=== PATIENT | male | born 1985 | race African-American/Black ===

== ENCOUNTER → 2017-01-08 | Outpatient (CLI) | payer OTHER ==
[~2017-01-08] MED LIST: ACET-1256 PO; BUSP-8 PO; DIVA500T5 PO; HYDR25TA4 PO; MAGNSUS5 PO; METO50TA16 PO; PERP1TAB PO; TRAZ1TAB9 PO
[2017-01-08 14:30] LABS: HEMATOCRIT 46.5 % (42-52); MEAN CELL VOLUME 79.1 fL (80-100); MEAN CORPUSCULAR HEMOGLOBIN 26.7 pg (25-34); MEAN PLATELET VOLUME 10.4 fL (7.4-10.4); PLATELET COUNT 282 K/uL (130-400); RED BLOOD COUNT 5.88 M/uL (4.7-6.1); WHITE BLOOD COUNT 4.95 K/uL (4.8-10.8)
[2017-01-08 14:42] LABS: BLOOD UREA NITROGEN 15 mg/dl (7-18); BUN/CREATININE RATIO 12.1 (10-20); CALCIUM 9.6 mg/dl (8.5-10.1); CARBON DIOXIDE 27 mmol/L (21-32); CHLORIDE 107 mmol/L (98-107); GLUCOSE 77 mg/dl (70-99); MEAN CORPUSCULAR HGB CONC 33.8 g/dl (32-36); POTASSIUM 4.4 mmol/L (3.5-5.1); SODIUM 141 mmol/L (136-145)
[2017-01-08 15:31] LABS: ALB/GLOB RATIO 1.4 (0.9-2); ALKALINE PHOSPHATASE 63 U/L (45-117); ALT/SGPT 23 U/L (12-78); AST/SGOT 16 U/L (15-37); THYROID STIMULATING HORMONE 0.235 uIu/ml (0.300-4.500)
[2017-01-08 15:39] LABS: BASO % 0.4 %; BASO ABS # 0.02 K/uL (0-0.2); COMPLETE YES; EOS % 1.6 %; LYMPH % 50.3 %; LYMPH ABS # 2.49 K/uL (1.2-3.4); MONO % 4.8 %; NEUT % 42.9 %
== END ==
LOC: C.LABSPEC 14:08
PROVIDERS: ATTEND Family Medicine
DX: Z01.89 Encounter for other specified special examinations (principal)

== ENCOUNTER 2021-12-19 11:52 | Inpatient (IN) ==
--- NOTE | 2021-12-19 12:37 | Emergency Department Note ---
History of Present Illness General Chief complaint: Overdose (Intentional) Stated complaint: SELF HARM SWALLOWING APPROXIMATEELY 50 PILLS Time Seen by Provider: 12/19/21 12:23 Source: patient and police Mode of arrival: other ([facility] transport) History of Present Illness Provider complaint: Overdose Onset (ago): hour(s) Location: abdomen Pain Consistency: + constant Quality: + other (Took approximately 50 tablets of aspirin 325 mg) Relieved By: + none Associated symptoms: no chest pain, no cough, no fever/chills, no headaches, no nausea/vomiting or no shortness of breath This is a 36-year-old male with a history of PTSD and depression presenting after intentionally overdosing on aspirin at approximately 10 to 10:30 AM this morning. He states he took approximately a half bottle of aspirin which contained the 100 tablets of 325 mg aspirin. He complains of a little stomach discomfort but otherwise has no complaints. He was attempting to kill himself and currently states that he just feels tired. He denies any nausea or vomiting, headache, fever, cough or cold symptoms, chest pain, shortness of breath, ringing in his ears, diarrhea or urinary symptoms. He denies any other overdose Home Medications Medication Instructions Recorded Confirmed Type prazosin 2 mg capsule 2 mg PO HS 12/19/21 12/19/21 History Allergies Allergy/AdvReac Type Severity Reaction Status Date / Time Fish Allergy Unknown UNKN Uncoded 12/19/21 15:49 Past Med/Surg History Medical History (Updated 12/19/21 @ 18:09 by Sheldon Jones MD) Antisocial personality disorder Depression PTSD (post-traumatic stress disorder) Surgical History (Updated 12/19/21 @ 16:35 by Jessie Nair PA-C) History of appendectomy History of hand surgery R hand reconstruction Family History (Updated 12/19/21 @ 16:36 by Jessie Nair PA-C) Other Diabetes Hypertension Social History Smoking Status: Current every day smoker Current Living Situation: Other Current Living Situation Comment: [facility] Feels Safe at Home: Yes Review of Systems See HPI for pertinent positives & negatives. and A total of 10 systems reviewed and were otherwise negative Physical Exam Vital Signs Vital Signs - 24 hr 12/19/21 12:06 12/19/21 12:23 12/19/21 12:54 Temperature 36.4 C L Temperature Source Temporal Artery Scan Pulse Rate 86 67 Pulse Rate [Apical] 67 Pulse Rhythm Regular Pulse Rhythm [Apical] Regular Pulse Strength [Apical] Normal Respiratory Rate 18 18 Respiratory Effort / Characteristics Non-Labored Spontaneous Non-Labored Respiratory Depth Normal Normal Respiratory Pattern Regular Regular Blood Pressure 161/103 H Blood Pressure [Left Arm] 133/92 Blood Pressure Mean 122 Blood Pressure Mean [Left Arm] 105 Blood Pressure Position Sitting Blood Pressure Position [Left Arm] Lying Pulse Oximetry 99 98 Oxygen Delivery Method Room Air Room Air Oxygen Flow Rate 0 Sepsis Recent Fever Within 48 Hours No Sepsis New/Unexplained Change in Mental Status No Sepsis Action Taken by Nursing No Action Required 12/19/21 14:01 12/19/21 14:47 12/19/21 16:12 Temperature Temperature Source Pulse Rate Pulse Rate [Apical] 65 74 79 Pulse Rhythm Pulse Rhythm [Apical] Regular Regular Regular Pulse Strength [Apical] Normal Normal Normal Respiratory Rate 18 18 18 Respiratory Effort / Characteristics Non-Labored Non-Labored Non-Labored Respiratory Depth Normal Normal Normal Respiratory Pattern Regular Regular Regular Blood Pressure Blood Pressure [Left Arm] 138/74 132/72 131/77 Blood Pressure Mean Blood Pressure Mean [Left Arm] 95 92 95 Blood Pressure Position Blood Pressure Position [Left Arm] Lying Lying Lying Pulse Oximetry 98 97 97 Oxygen Delivery Method Room Air Room Air Room Air Oxygen Flow Rate Sepsis Recent Fever Within 48 Hours Sepsis New/Unexplained Change in Mental Status Sepsis Action Taken by Nursing Constitutional: Vital signs reviewed. Eyes: Pupils are equal round reactive to light. Conjunctiva are noninjected. ENT: Pharynx is clear without erythema or exudate. Mucous membranes are moist. Neck supple without meningeal signs. Respiratory: Clear to auscultation bilaterally. Breath sounds are equal bilaterally. Cardiovascular: Regular rate and rhythm. No rubs or gallops. GI: Soft, nondistended and nontender. Bowel sounds are present. Musculoskeletal: No peripheral edema. No lower extremity tenderness. Integumentary: No cyanosis. or jaundice. Neurological: The patient is awake and alert. No focal deficits. Psychiatric: Depressed affect. Not tearful. Course Consultations Consultation #1: [facility] recommended activated charcoal Time: 12:46 Administered Medications Sodium Bicarbonate 150 meq/ (Dextrose) 1,150 mls @ 250 mls/hr IV [id number] Stop: 01/18/22 15:29 Last Admin: 12/19/21 15:48 Dose: 250 mls/hr Documented by: [id number] Discontinued Medications Charcoal/Sorbitol (Activated Charcoal/Sorbitol 25 Gm/120 Ml Tube) 50 gm PO NOW STA Stop: 12/19/21 12:42 Last Admin: 12/19/21 12:52 Dose: 50 gm Documented by: [id number] Famotidine (Pepcid 20mg Iv Push) 20 mg in 5 mls @ 2.5 mls/min IV NOW STA Stop: 12/19/21 16:22 Last Admin: 12/19/21 16:48 Dose: 2.5 mls/min Documented by: [id number] Ondansetron HCl (Ondansetron Inj 2 Mg/Ml 2 Ml Vial) 4 mg IV NOW STA Stop: 12/19/21 16:22 Last Admin: 12/19/21 16:48 Dose: 4 mg Documented by: [id number] Sodium Bicarbonate (Sodium Bicarb 8.4% Inj 50 Meq/50 Ml Syr) 100 meq IV NOW STA Stop: 12/19/21 15:15 Last Admin: 12/19/21 15:23 Dose: 100 meq Documented by: [id number] Critical Care Time Critical Care Time: Yes Total Critical Care Time: 45 I have personally spent approximately 45 minutes of critical care time in the direct management of this patient. This includes bedside care, interpretation of diagnostic studies, and testing, discussion with consultants, patient, and family members, and other required patient management activities. These minutes are in excess of all separately billable procedures. Medical Decision Making Differential Diagnosis Salicylate overdose, suicide attempt, mood disorder, PTSD, suicidal gesture Medical Records Attestation: I reviewed the patient's medical records. I did perform a limited focused review of portions of the patient's old chart on the electronic medical record. The patient has had no recent pertinent visits to this hospital. Home Medications Current Medication List: was personally reviewed by me Laboratory Data Attestation: I reviewed the patient's lab results. Result diagrams: 12/19/21 12:24 12/19/21 16:42 Lab Results 12/19/21 12/19/21 12/19/21 Range/Units 12:24 12:24 12:24 WBC 4.03 L (4.8-10.8) K/uL RBC 5.55 (4.7-6.1) M/uL Hgb 14.9 (14.0-18.0) g/dL Hct 43.9 (42-52) % MCV 79.1 L (80-100) fL MCH 26.8 (25-34) pg MCHC 33.9 (32-36) g/dL RDW Std Deviation 39.4 (36.4-46.3) fL RDW Coeff of Marco A 13.7 (11.5-14.5) % Plt Count 323 (130-400) K/uL MPV 9.3 (7.4-10.4) fL Immature Gran % (Auto) 0.0 % Neut % (Auto) 51.0 % Lymph % (Auto) 40.4 % [place] % (Auto) 7.9 % Eos % (Auto) 0.5 % Baso % (Auto) 0.2 % Neut # (Auto) 2.05 (1.4-6.5) K/uL Lymph # (Auto) 1.63 (1.2-3.4) K/uL [place] # (Auto) 0.32 (0.11-0.59) K/uL Eos # (Auto) 0.02 (0-0.5) K/uL Baso # (Auto) 0.01 (0-0.2) K/uL Immature Gran # (Auto) 0.00 (0.00-0.02) K/uL ABG pH (7.35-7.45) ABG pCO2 (35-46) mmHg ABG pO2 (80-95) mmHg ABG HCO3 (19-24) mmol/L ABG O2 Saturation (90-95) % ABG Base Excess (-9-1.8) mEq/L Colin Test (Pos) VBG pH (7.36-7.41) VBG pCO2 (38-50) mmHg VBG pO2 mmHg VBG HCO3 mmol/L VBG O2 Saturation % VBG Base Excess mEq/L Barometric Pressure mm/Hg Oxygen Given Sodium 139 (136-145) mmol/L Potassium 4.1 (3.5-5.1) mmol/L Chloride 107 (98-107) mmol/L Carbon Dioxide 24 (21-32) mmol/L Anion Gap 8 (3-11) BUN 12 (6-23) mg/dl Creatinine 1.24 (0.6-1.4) mg/dl Est Cr Clr Drug Dosing 92.2 ml/min Est GFR ( Amer) 85.5 ml/min Est GFR (Non-Af Amer) 73.8 ml/min BUN/Creatinine Ratio 9.7 L (10-20) Glucose 94 (70-99(Fasting)) mg/dl POC Glucose (70-99) mg/dl Lactate (0.4-2.0) mmol/L Calcium 9.6 (8.5-10.1) mg/dl Magnesium Total Bilirubin 0.6 (0.2-1.0) mg/dl AST 18 (13-39) U/L ALT 14 (7-52) U/L Alkaline Phosphatase 63 (34-104) U/L Total Creatine Kinase (30-223) U/L Troponin I (0-0.04) ng/ml Total Protein 7.5 (6.0-8.3) gm/dl Albumin 4.7 (3.4-5.0) gm/dl Globulin 2.8 (2.5-4.0) gm/dl Albumin/Globulin Ratio 1.7 (0.9-2) Urine Color Urine Appearance (Clear) Urine pH (4.5-7.5) Ur Specific [place] (1.000-1.030) Urine Protein (Negative) Urine Glucose (UA) (Negative) Urine Ketones (Negative) Urine Blood (Negative) Urine Nitrite (Negative) Urine Bilirubin (Negative) Urine Urobilinogen (Negative) Ur Leukocyte Esterase (Negative) Salicylates 27.2 (3.0-30) mg/dl Urine Opiates Screen (Neg) Ur Methadone, Qual (Neg) Acetaminophen < 3 L (10-30) ug/ml Urine Barbiturates (Neg) Ur Phencyclidine (PCP) (Neg) U Amphetamin/Meth Scrn (Neg) MDMA (Ecstasy) Screen (Neg) U Benzodiazepines Scrn (Neg) Ur Cocaine Metabolite (Neg) U Marijuana (THC) Screen (Neg) Ethyl Alcohol mg/dL (<10.0) mg/dl 12/19/21 12/19/21 12/19/21 Range/Units 12:24 12:38 12:38 WBC (4.8-10.8) K/uL RBC (4.7-6.1) M/uL Hgb (14.0-18.0) g/dL Hct (42-52) % MCV (80-100) fL MCH (25-34) pg MCHC (32-36) g/dL RDW Std Deviation (36.4-46.3) fL RDW Coeff of Marco A (11.5-14.5) % Plt Count (130-400) K/uL MPV (7.4-10.4) fL Immature Gran % (Auto) % Neut % (Auto) % Lymph % (Auto) % [place] % (Auto) % Eos % (Auto) % Baso % (Auto) % Neut # (Auto) (1.4-6.5) K/uL Lymph # (Auto) (1.2-3.4) K/uL [place] # (Auto) (0.11-0.59) K/uL Eos # (Auto) (0-0.5) K/uL Baso # (Auto) (0-0.2) K/uL Immature Gran # (Auto) (0.00-0.02) K/uL ABG pH (7.35-7.45) ABG pCO2 (35-46) mmHg ABG pO2 (80-95) mmHg ABG HCO3 (19-24) mmol/L ABG O2 Saturation (90-95) % ABG Base Excess (-9-1.8) mEq/L Colin Test (Pos) VBG pH 7.42 H (7.36-7.41) VBG pCO2 38 (38-50) mmHg VBG pO2 63 mmHg VBG HCO3 24 mmol/L VBG O2 Saturation 93.6 % VBG Base Excess 0.2 mEq/L Barometric Pressure 735.6 mm/Hg Oxygen Given Sodium (136-145) mmol/L Potassium (3.5-5.1) mmol/L Chloride (98-107) mmol/L Carbon Dioxide (21-32) mmol/L Anion Gap (3-11) BUN (6-23) mg/dl Creatinine (0.6-1.4) mg/dl Est Cr Clr Drug Dosing ml/min Est GFR ( Amer) ml/min Est GFR (Non-Af Amer) ml/min BUN/Creatinine Ratio (10-20) Glucose (70-99(Fasting)) mg/dl POC Glucose (70-99) mg/dl Lactate 0.8 (0.4-2.0) mmol/L Calcium (8.5-10.1) mg/dl Magnesium Total Bilirubin (0.2-1.0) mg/dl AST (13-39) U/L ALT (7-52) U/L Alkaline Phosphatase (34-104) U/L Total Creatine Kinase (30-223) U/L Troponin I (0-0.04) ng/ml Total Protein (6.0-8.3) gm/dl Albumin (3.4-5.0) gm/dl Globulin (2.5-4.0) gm/dl Albumin/Globulin Ratio (0.9-2) Urine Color Urine Appearance (Clear) Urine pH (4.5-7.5) Ur Specific [place] (1.000-1.030) Urine Protein (Negative) Urine Glucose (UA) (Negative) Urine Ketones (Negative) Urine Blood (Negative) Urine Nitrite (Negative) Urine Bilirubin (Negative) Urine Urobilinogen (Negative) Ur Leukocyte Esterase (Negative) Salicylates (3.0-30) mg/dl Urine Opiates Screen (Neg) Ur Methadone, Qual (Neg) Acetaminophen (10-30) ug/ml Urine Barbiturates (Neg) Ur Phencyclidine (PCP) (Neg) U Amphetamin/Meth Scrn (Neg) MDMA (Ecstasy) Screen (Neg) U Benzodiazepines Scrn (Neg) Ur Cocaine Metabolite (Neg) U Marijuana (THC) Screen (Neg) Ethyl Alcohol mg/dL < 10.0 (<10.0) mg/dl 12/19/21 12/19/21 12/19/21 Range/Units 12:38 13:15 13:15 WBC (4.8-10.8) K/uL RBC (4.7-6.1) M/uL Hgb (14.0-18.0) g/dL Hct (42-52) % MCV (80-100) fL MCH (25-34) pg MCHC (32-36) g/dL RDW Std Deviation (36.4-46.3) fL RDW Coeff of Marco A (11.5-14.5) % Plt Count (130-400) K/uL MPV (7.4-10.4) fL Immature Gran % (Auto) % Neut % (Auto) % Lymph % (Auto) % [place] % (Auto) % Eos % (Auto) % Baso % (Auto) % Neut # (Auto) (1.4-6.5) K/uL Lymph # (Auto) (1.2-3.4) K/uL [place] # (Auto) (0.11-0.59) K/uL Eos # (Auto) (0-0.5) K/uL Baso # (Auto) (0-0.2) K/uL Immature Gran # (Auto) (0.00-0.02) K/uL ABG pH (7.35-7.45) ABG pCO2 (35-46) mmHg ABG pO2 (80-95) mmHg ABG HCO3 (19-24) mmol/L ABG O2 Saturation (90-95) % ABG Base Excess (-9-1.8) mEq/L Colin Test (Pos) VBG pH (7.36-7.41) VBG pCO2 (38-50) mmHg VBG pO2 mmHg VBG HCO3 mmol/L VBG O2 Saturation % VBG Base Excess mEq/L Barometric Pressure mm/Hg Oxygen Given Sodium (136-145) mmol/L Potassium (3.5-5.1) mmol/L Chloride (98-107) mmol/L Carbon Dioxide (21-32) mmol/L Anion Gap (3-11) BUN (6-23) mg/dl Creatinine (0.6-1.4) mg/dl Est Cr Clr Drug Dosing ml/min Est GFR ( Amer) ml/min Est GFR (Non-Af Amer) ml/min BUN/Creatinine Ratio (10-20) Glucose (70-99(Fasting)) mg/dl POC Glucose (70-99) mg/dl Lactate (0.4-2.0) mmol/L Calcium (8.5-10.1) mg/dl Magnesium Total Bilirubin (0.2-1.0) mg/dl AST (13-39) U/L ALT (7-52) U/L Alkaline Phosphatase (34-104) U/L Total Creatine Kinase 352 H (30-223) U/L Troponin I (0-0.04) ng/ml Total Protein (6.0-8.3) gm/dl Albumin (3.4-5.0) gm/dl Globulin (2.5-4.0) gm/dl Albumin/Globulin Ratio (0.9-2) Urine Color Yellow Urine Appearance Clear (Clear) Urine pH 6.5 (4.5-7.5) Ur Specific [place]lette 1.012 (1.000-1.030) Urine Protein Negative (Negative) Urine Glucose (UA) Negative (Negative) Urine Ketones Negative (Negative) Urine Blood Negative (Negative) Urine Nitrite Negative (Negative) Urine Bilirubin Negative (Negative) Urine Urobilinogen Negative (Negative) Ur Leukocyte Esterase Negative (Negative) Salicylates (3.0-30) mg/dl Urine Opiates Screen Neg (Neg) Ur Methadone, Qual Neg (Neg) Acetaminophen (10-30) ug/ml Urine Barbiturates Neg (Neg) Ur Phencyclidine (PCP) Neg (Neg) U Amphetamin/Meth Scrn Neg (Neg) MDMA (Ecstasy) Screen Neg (Neg) U Benzodiazepines Scrn Neg (Neg) Ur Cocaine Metabolite Neg (Neg) U Marijuana (THC) Screen Neg (Neg) Ethyl Alcohol mg/dL (<10.0) mg/dl 12/19/21 12/19/21 12/19/21 Range/Units 14:20 14:20 14:20 WBC (4.8-10.8) K/uL RBC (4.7-6.1) M/uL Hgb (14.0-18.0) g/dL Hct (42-52) % MCV (80-100) fL MCH (25-34) pg MCHC (32-36) g/dL RDW Std Deviation (36.4-46.3) fL RDW Coeff of Marco A (11.5-14.5) % Plt Count (130-400) K/uL MPV (7.4-10.4) fL Immature Gran % (Auto) % Neut % (Auto) % Lymph % (Auto) % [place] % (Auto) % Eos % (Auto) % Baso % (Auto) % Neut # (Auto) (1.4-6.5) K/uL Lymph # (Auto) (1.2-3.4) K/uL [place] # (Auto) (0.11-0.59) K/uL Eos # (Auto) (0-0.5) K/uL Baso # (Auto) (0-0.2) K/uL Immature Gran # (Auto) (0.00-0.02) K/uL ABG pH (7.35-7.45) ABG pCO2 (35-46) mmHg ABG pO2 (80-95) mmHg ABG HCO3 (19-24) mmol/L ABG O2 Saturation (90-95) % ABG Base Excess (-9-1.8) mEq/L Colin Test (Pos) VBG pH (7.36-7.41) VBG pCO2 (38-50) mmHg VBG pO2 mmHg VBG HCO3 mmol/L VBG O2 Saturation % VBG Base Excess mEq/L Barometric Pressure mm/Hg Oxygen Given Sodium (136-145) mmol/L Potassium 5.0 D (3.5-5.1) mmol/L Chloride (98-107) mmol/L Carbon Dioxide (21-32) mmol/L Anion Gap (3-11) BUN (6-23) mg/dl Creatinine (0.6-1.4) mg/dl Est Cr Clr Drug Dosing ml/min Est GFR ( Amer) ml/min Est GFR (Non-Af Amer) ml/min BUN/Creatinine Ratio (10-20) Glucose (70-99(Fasting)) mg/dl POC Glucose (70-99) mg/dl Lactate (0.4-2.0) mmol/L Calcium (8.5-10.1) mg/dl Magnesium Cancelled 2.3 Total Bilirubin (0.2-1.0) mg/dl AST (13-39) U/L ALT (7-52) U/L Alkaline Phosphatase (34-104) U/L Total Creatine Kinase (30-223) U/L Troponin I (0-0.04) ng/ml Total Protein (6.0-8.3) gm/dl Albumin (3.4-5.0) gm/dl Globulin (2.5-4.0) gm/dl Albumin/Globulin Ratio (0.9-2) Urine Color Urine Appearance (Clear) Urine pH (4.5-7.5) Ur Specific [place]lette (1.000-1.030) Urine Protein (Negative) Urine Glucose (UA) (Negative) Urine Ketones (Negative) Urine Blood (Negative) Urine Nitrite (Negative) Urine Bilirubin (Negative) Urine Urobilinogen (Negative) Ur Leukocyte Esterase (Negative) Salicylates 37.0 H* (3.0-30) mg/dl Urine Opiates Screen (Neg) Ur Methadone, Qual (Neg) Acetaminophen (10-30) ug/ml Urine Barbiturates (Neg) Ur Phencyclidine (PCP) (Neg) U Amphetamin/Meth Scrn (Neg) MDMA (Ecstasy) Screen (Neg) U Benzodiazepines Scrn (Neg) Ur Cocaine Metabolite (Neg) U Marijuana (THC) Screen (Neg) Ethyl Alcohol mg/dL (<10.0) mg/dl 12/19/21 12/19/21 12/19/21 Range/Units 15:23 16:42 16:42 WBC (4.8-10.8) K/uL RBC (4.7-6.1) M/uL Hgb (14.0-18.0) g/dL Hct (42-52) % MCV (80-100) fL MCH (25-34) pg MCHC (32-36) g/dL RDW Std Deviation (36.4-46.3) fL RDW Coeff of Marco A (11.5-14.5) % Plt Count (130-400) K/uL MPV (7.4-10.4) fL Immature Gran % (Auto) % Neut % (Auto) % Lymph % (Auto) % [place] % (Auto) % Eos % (Auto) % Baso % (Auto) % Neut # (Auto) (1.4-6.5) K/uL Lymph # (Auto) (1.2-3.4) K/uL [place] # (Auto) (0.11-0.59) K/uL Eos # (Auto) (0-0.5) K/uL Baso # (Auto) (0-0.2) K/uL Immature Gran # (Auto) (0.00-0.02) K/uL ABG pH 7.52 H* (7.35-7.45) ABG pCO2 31 L (35-46) mmHg ABG pO2 102 H (80-95) mmHg ABG HCO3 25 H (19-24) mmol/L ABG O2 Saturation 98.1 H (90-95) % ABG Base Excess 3.0 H (-9-1.8) mEq/L Colin Test Pos (Pos) VBG pH (7.36-7.41) VBG pCO2 (38-50) mmHg VBG pO2 mmHg VBG HCO3 mmol/L VBG O2 Saturation % VBG Base Excess mEq/L Barometric Pressure 733.5 mm/Hg Oxygen Given Room Air Sodium (136-145) mmol/L Potassium 3.8 D (3.5-5.1) mmol/L Chloride (98-107) mmol/L Carbon Dioxide (21-32) mmol/L Anion Gap (3-11) BUN (6-23) mg/dl Creatinine (0.6-1.4) mg/dl Est Cr Clr Drug Dosing ml/min Est GFR ( Amer) ml/min Est GFR (Non-Af Amer) ml/min BUN/Creatinine Ratio (10-20) Glucose (70-99(Fasting)) mg/dl POC Glucose 95 (70-99) mg/dl Lactate (0.4-2.0) mmol/L Calcium (8.5-10.1) mg/dl Magnesium 2.2 Total Bilirubin (0.2-1.0) mg/dl AST (13-39) U/L ALT (7-52) U/L Alkaline Phosphatase (34-104) U/L Total Creatine Kinase (30-223) U/L Troponin I < 0.03 (0-0.04) ng/ml Total Protein (6.0-8.3) gm/dl Albumin (3.4-5.0) gm/dl Globulin (2.5-4.0) gm/dl Albumin/Globulin Ratio (0.9-2) Urine Color Urine Appearance (Clear) Urine pH (4.5-7.5) Ur Specific [place] (1.000-1.030) Urine Protein (Negative) Urine Glucose (UA) (Negative) Urine Ketones (Negative) Urine Blood (Negative) Urine Nitrite (Negative) Urine Bilirubin (Negative) Urine Urobilinogen (Negative) Ur Leukocyte Esterase (Negative) Salicylates (3.0-30) mg/dl Urine Opiates Screen (Neg) Ur Methadone, Qual (Neg) Acetaminophen (10-30) ug/ml Urine Barbiturates (Neg) Ur Phencyclidine (PCP) (Neg) U Amphetamin/Meth Scrn (Neg) MDMA (Ecstasy) Screen (Neg) U Benzodiazepines Scrn (Neg) Ur Cocaine Metabolite (Neg) U Marijuana (THC) Screen (Neg) Ethyl Alcohol mg/dL (<10.0) mg/dl 12/19/21 Range/Units 17:31 WBC (4.8-10.8) K/uL RBC (4.7-6.1) M/uL Hgb (14.0-18.0) g/dL Hct (42-52) % MCV (80-100) fL MCH (25-34) pg MCHC (32-36) g/dL RDW Std Deviation (36.4-46.3) fL RDW Coeff of Marco A (11.5-14.5) % Plt Count (130-400) K/uL MPV (7.4-10.4) fL Immature Gran % (Auto) % Neut % (Auto) % Lymph % (Auto) % [place] % (Auto) % Eos % (Auto) % Baso % (Auto) % Neut # (Auto) (1.4-6.5) K/uL Lymph # (Auto) (1.2-3.4) K/uL [place] # (Auto) (0.11-0.59) K/uL Eos # (Auto) (0-0.5) K/uL Baso # (Auto) (0-0.2) K/uL Immature Gran # (Auto) (0.00-0.02) K/uL ABG pH (7.35-7.45) ABG pCO2 (35-46) mmHg ABG pO2 (80-95) mmHg ABG HCO3 (19-24) mmol/L ABG O2 Saturation (90-95) % ABG Base Excess (-9-1.8) mEq/L Colin Test (Pos) VBG pH (7.36-7.41) VBG pCO2 (38-50) mmHg VBG pO2 mmHg VBG HCO3 mmol/L VBG O2 Saturation % VBG Base Excess mEq/L Barometric Pressure mm/Hg Oxygen Given Sodium (136-145) mmol/L Potassium (3.5-5.1) mmol/L Chloride (98-107) mmol/L Carbon Dioxide (21-32) mmol/L Anion Gap (3-11) BUN (6-23) mg/dl Creatinine (0.6-1.4) mg/dl Est Cr Clr Drug Dosing ml/min Est GFR ( Amer) ml/min Est GFR (Non-Af Amer) ml/min BUN/Creatinine Ratio (10-20) Glucose (70-99(Fasting)) mg/dl POC Glucose 98 (70-99) mg/dl Lactate (0.4-2.0) mmol/L Calcium (8.5-10.1) mg/dl Magnesium Total Bilirubin (0.2-1.0) mg/dl AST (13-39) U/L ALT (7-52) U/L Alkaline Phosphatase (34-104) U/L Total Creatine Kinase (30-223) U/L Troponin I (0-0.04) ng/ml Total Protein (6.0-8.3) gm/dl Albumin (3.4-5.0) gm/dl Globulin (2.5-4.0) gm/dl Albumin/Globulin Ratio (0.9-2) Urine Color Urine Appearance (Clear) Urine pH (4.5-7.5) Ur Specific Roulette (1.000-1.030) Urine Protein (Negative) Urine Glucose (UA) (Negative) Urine Ketones (Negative) Urine Blood (Negative) Urine Nitrite (Negative) Urine Bilirubin (Negative) Urine Urobilinogen (Negative) Ur Leukocyte Esterase (Negative) Salicylates (3.0-30) mg/dl Urine Opiates Screen (Neg) Ur Methadone, Qual (Neg) Acetaminophen (10-30) ug/ml Urine Barbiturates (Neg) Ur Phencyclidine (PCP) (Neg) U Amphetamin/Meth Scrn (Neg) MDMA (Ecstasy) Screen (Neg) U Benzodiazepines Scrn (Neg) Ur Cocaine Metabolite (Neg) U Marijuana (THC) Screen (Neg) Ethyl Alcohol mg/dL (<10.0) mg/dl Imaging Data Radiologist's Impression: KUB X-Ray 12/19/21 12:41 KUB HISTORY: eval for pill bezoar COMPARISON: None. FINDINGS: The bowel gas pattern is unremarkable. There are no dilated loops of small bowel to suggest an obstruction. No renal calculi. No ureteral calculi. Calcifications in the deep pelvis likely represent phleboliths. No radiopaque foreign bodies. Small amount of well-formed stool seen throughout the colon. No pneumoperitoneum or pneumatosis. IMPRESSION: 1. No evidence for bowel obstruction. 2. No radiopaque foreign bodies. ACT 112: Negative or not required by law. Electronically signed by: Dustin Mackenzie M.D. 12/19/2021 1:39 PM ECG Data Attestation: I personally reviewed and interpreted this ECG as follows: Indication: + toxicologic Rate (beats per minute): 70 Rhythm: + normal sinus ECG Intervals/blocks: + Normal QRS and + Normal QT ECG [place]: + Normal ECG ST segments: + repolarization abnormalities ECG Findings: no PVCs Comparison ECG Date: no prior available MDM Narrative I did evaluate the patient as noted above. The patient is brought in after a suicide attempt with overdose on aspirin. He took approximately 50 tablets of 325 mg aspirin sometime between 10-10 30 a.m. and intent to end his life. He currently has no complaints other than some abdominal discomfort. I did immediately call [facility] poison control. They recommended no acute intervention initially including activated charcoal but then they called back a few minutes later and stated that they would recommend that activated charcoal due to the amount of aspirin that was ingested. I did immediately order activated charcoal 50 g with sorbitol IV access was established. I did place an order for continuous cardiac monitoring. The monitor showed normal sinus rhythm at a rate of 70 bpm. I did order and personally review the patient's 12- lead EKG as described above. There is no evidence of QT prolongation or abnormal QRS. No dysrhythmia. I did order and personally reviewed the images of the patient's KUB x-ray as described above. No radiopaque pills or basilar is noted I did order a urine analysis. This is normal. Urine pH is 6.5. Urine tox screen is negative. I did order and review the patient's blood work as noted in the electronic medical record. CBC demonstrates a mild leukopenia with a white count of 4.0 but otherwise a CBC is unremarkable. VBG shows a pH of 7.42. Electrolytes are unremarkable. Potassium is 4.1. Magnesium is normal. Total CK is slightly elevated at 352.Toxicology screen shows a salicylate level of 27.2. Acetaminophen is less than 3 and alcohol is negative. Poison control did recommend a repeat salicylate level in 2 hours. This was repeated 2 hours after his first draw and it was 37. Poison control recommended treating him with bicarb. I did order a second glucose which was 95. His repeat potassium was 5 and so I did not give him any IV potassium. He was given 2 A of bicarbonate IV. He was started on a drip of D5W with 150 mEq of bicarb running at 250 mL an hour to alkalinize his urine. I did discuss the test results with the patient. He is not confused in any way. He complains of generalized malaise but has no specific complaints. He will be hospitalized for further care and evaluation. I did discuss the case with the hospitalist and telephonic case manager. Impression & Plan Salicylate overdose, Suicide attempt, Mood disorder, Leukopenia Discharge Plan Visit Data Chief Complaint: Overdose (Intentional) Stated Complaint: SELF HARM SWALLOWING APPROXIMATEELY 50 PILLS ED Provider: Sheldon Jones Discharge Problem: Salicylate overdose, Suicide attempt, Mood disorder, Leukopenia Patient Disposition: Being Evaluated by Hospitalist Forms Stand Alone Forms: My [facility], Suicide Prevention Resources Prescriptions Prescriptions: No Action prazosin 2 mg Capsule 2 mg PO HS RF: 0 Referrals Referrals: Margie ROSALES [Non-Staff] -
[2021-12-19] MEDS ORDERED: ACTIVATED CHARCOAL/SORBITOL 25 GM/120 ML TUBE PO STA (12:41)
[2021-12-19 12:45] LABS: Basophils # (auto) 0.01 K/uL (0-0.2); Basophils % (auto) 0.2 %; Eosinophils # (auto) 0.02 K/uL (0-0.5); Eosinophils % (auto) 0.5 %; Hematocrit (blood only) 43.9 % (42-52); Hemoglobin 14.9 g/dL (14.0-18.0); Lymphocytes # (auto) 1.63 K/uL (1.2-3.4); Lymphocytes % (auto) 40.4 %; Mean Corpuscular Hemoglobin 26.8 pg (25-34); Mean Corpuscular Hgb Conc 33.9 g/dL (32-36); Mean Corpuscular Volume 79.1 fL (80-100); Mean Platelet Volume 9.3 fL (7.4-10.4); Monocytes # (auto) 0.32 K/uL (0.11-0.59); Monocytes % (auto) 7.9 %; Neutrophils # (auto) 2.05 K/uL (1.4-6.5); Platelet Count 323 K/uL (130-400); RDW Coefficient of Variation 13.7 % (11.5-14.5); RDW Standard Deviation 39.4 fL (36.4-46.3); Red Blood Count 5.55 M/uL (4.7-6.1); White Blood Count 4.03 K/uL (4.8-10.8)
[2021-12-19 13:03] LABS: Base Excess VBG 0.2 mEq/L; Oxygen Saturation VBG 93.6 %; pH VBG 7.42 (7.36-7.41)
[2021-12-19 13:03] LABS: Acetaminophen < 3 ug/ml (10-30); Albumin Globulin Ratio 1.7 (0.9-2); Albumin Level 4.7 gm/dl (3.4-5.0); BUN Creatinine Ratio 9.7 (10-20); Bilirubin,Total 0.6 mg/dl (0.2-1.0); Calcium 9.6 mg/dl (8.5-10.1); Creatinine Clr Calc Pharmacy 92.2 ml/min; Est GFR (African American) 85.5 ml/min; Est GFR (Non-African American) 73.8 ml/min; Globulin 2.8 gm/dl (2.5-4.0); Potassium 4.1 mmol/L (3.5-5.1); Salicylate 27.2 mg/dl (3.0-30); Total Protein 7.5 gm/dl (6.0-8.3)
[2021-12-19 13:35] LABS: Appearance Urine Clear (Clear); Bilirubin Urine Negative (Negative); Blood Urine Negative (Negative); Color Urine Yellow; Glucose Urine UA Negative (Negative); Ketones Urine Negative (Negative); Leukocyte Esterase Urine Negative (Negative); Nitrite Urine Negative (Negative); Protein Urine Negative (Negative); Specific Gravity Urine 1.012 (1.000-1.030); Urobilinogen Urine Negative (Negative); pH Urine 6.5 (4.5-7.5)
--- NOTE | 2021-12-19 13:40 | XRay Report ---
KUB HISTORY: eval for pill bezoar COMPARISON: None. FINDINGS: The bowel gas pattern is unremarkable. There are no dilated loops of small bowel to suggest an obstruction. No renal calculi. No ureteral calculi. Calcifications in the deep pelvis likely rep resent phleboliths. No radiopaque foreign bodies. Small amount of well-formed stool seen throughout t he colon. No pneumoperitoneum or pneumatosis. IMPRESSION: 1. No evidence for bowel obstruction. 2. No radiopaque foreign bodies. ACT 112: Negative or not required by law. Electronically signed by: Dustin Mackenzie M.D. 12/19/2021 1:39 PM
[2021-12-19 14:25] LABS: Amphetamines+Metham, Urine Neg (Neg); Barbiturates, Urine Neg (Neg); Benzodiazepine, Urine Neg (Neg); Cocaine, Urine Neg (Neg); MDMA (Ecstacy), Urine Neg (Neg); Methadone, Urine Neg (Neg); Opiate, Urine Neg (Neg); Phencyclidine, Urine Neg (Neg)
[2021-12-19 14:55] LABS: Magnesium 2.3 mg/dl (1.7-2.4)
[2021-12-19] MEDS ORDERED: SODIUM BICARB 8.4% INJ 50 MEQ/50 ML SYR IV STA (15:14)
[2021-12-19] MEDS: SODIUM BICARBONATE 8.4% 150 MEQ in DEXTROSE 5% 1,000 ML IV SCH ×2 (15:48→20:29)
[2021-12-19] MEDS ORDERED: ONDANSETRON INJ 2 MG/ML 2 ML VIAL IV STA (16:21)
[2021-12-19] MEDS ORDERED: FAMOTIDINE 20MG IV PUSH 20 MG/5 ML SYR IV STA (16:21)
--- NOTE | 2021-12-19 16:27 | History & Physical Report ---
Date of Service December 19, 2021 Assessment & Plan (1) Salicylate overdose: (2) Suicidal ideation: (3) Hypertension: Plan: This is a 36 yr old M who has a significant PMH of Antisocial personality disorder, PTSD, Depression, former marijuana use who presents to ED for salicylate intentional OD. Pt took approx 50 tablets of 325mg ASA at 10-1030a.m. Intentional salicylate overdose Suicidal ideation Admit to PCU Poison control contacted by ED provider Activated charcoal given in ED Sodium bicarb 150 Meq gtt + D5 started in ED - will continue Goal urine pH is 7.5-7.55 VBG, BMP, Salicylate level, mag q2hr consult nephrology due to concern for impending acid base disturbance - Dr. Rodriguez aware Suicide precautions, safe tray Consult psychiatry Neurochecks every 2 hours L sided chest pain/epigastric pain likely in setting of overdose give antiemetics prn IV pepcid x 1 now EKG okay, will check trop x 2 for completeness Depression PTSD Antisocial personality disorder continue prazosin psych consulted 2/2 to suicide attempt HTN on prazosin for dual purposes monitor, bp stable DVT ppx: SCD/TEDS for now Dispo: PCU until salicylate level peaks and pt remains stable FULL CODE PCP: Avinash Pinon Pt was seen and examined in collaboration with Dr. Paulson, please see addendum History of Present Illness Chief Complaint: ASA overdose, intentional Primary Care Provider: BOBBY Da Silva This is a 36 yr old M who has a significant PMH of Antisocial personality disorder, PTSD, Depression, former marijuana use who presents to ED for salicylate intentional OD. Pt took approx 50 tablets of 325mg ASA at 10-1030a.m. He has done this in the past. He had intent to kill himself. He feels like he has so many things asked of him and he just can't do it anymore. He previously was on antidepressants but stopped them last month due to feeling like they aren't helping. He states he was hospitalized in past for this including our facility but I do not see any records. Currently he is complaining of epigastric abd pain, nausea and L sided chest pain. Chest pain is nonradiating, nothing makes it better or worse, described as an ache, 1 out of 10, not made worse with inspiration or movement, he has had in the past, but currently is constant. He denies any fever, chills, sweats, lightheadedness, dizziness, tinnitus, SOB, cough, vomiting, diarrhea, change in bowel or urinary habits. Currently he denies intent to harm others. In ED poison control was made aware of patient case. It was advised to give activated charcoal and start sodium bicarbonate. Initial CBC, CMP, VBG unremarkable. CK elevated at 352. Initial salicylate level WNL, but repeat 2 hours later was 37. Allergies Allergy/AdvReac Type Severity Reaction Status Date / Time Fish Allergy Unknown UNKN Uncoded 12/19/21 15:49 Home Medications Medication Instructions Recorded Confirmed Type prazosin 2 mg capsule 2 mg PO HS 12/19/21 12/19/21 History Past Med/Surg History Medical History (Updated 12/19/21 @ 18:09 by Sheldon Jones MD) Antisocial personality disorder Depression PTSD (post-traumatic stress disorder) Surgical History (Updated 12/19/21 @ 16:35 by Jessie Nair PA-C) History of appendectomy History of hand surgery R hand reconstruction Family History (Updated 12/19/21 @ 16:36 by Jessie Nair PA-C) Other Diabetes Hypertension Social History Smoking Status: Current every day smoker Current Living Situation: Other Current Living Situation Comment: Correctional facility Feels Safe at Home: Yes Review of Systems Review of Systems: All systems reviewed & are unremarkable except as noted in HPI & below Physical Exam Physical Exam: Constitutional: WD/WN, vitals as above, NAD, sitting up in bed, pleasant, conversing easily Head: Normocephalic, Atraumatic Eyes: PERRL, conjunctivae normal, anicteric sclerae ENMT: external ear and nose normal, oropharynx normal Neck: trachea midline, no thyromegaly normal visual inspection Respiratory: normal respiratory effort, lungs clear to auscultation, no wheeze, rales, rhonchi. Normal insp/exp effort, no accessory muscle use Cardiovascular: RRR, no murmur, no edema Vessels: no JVD or carotid bruit Chest: normal inspection of chest, L chest wall pain reproducible Abdomen: normal bowel sounds, soft, +epigastric discomfort, no rebound/guarding, no hepatosplenomegaly Musculoskeletal: no cyanosis or clubbing, extremities motor strength 5/5 Skin: no rashes, warm and dry normal turgor Neurologic: PERRL, EOMI, accommodation nl, no face palsy, no dysarthria CN's II-XI intact bilaterally and moves all extremities Psychiatric: A+Ox3, euthymic affect Lymphatic: no cervical or axillary lymphadenopathy : deferred Results & Data Results & Data ([facility]) Vital Signs (Past 12 Hours) Vital Signs Temp Pulse Pulse Resp BP BP Pulse Ox 12/19/21 16:12 79 18 131/77 97 12/19/21 14:47 74 18 132/72 97 12/19/21 14:01 65 18 138/74 98 12/19/21 12:54 133/92 12/19/21 12:23 67 67 18 98 12/19/21 12:06 36.4 C L 86 18 161/103 H 99 Diagnostic Findings KUB X-Ray 12/19/21 12:41 KUB HISTORY: eval for pill bezoar COMPARISON: None. FINDINGS: The bowel gas pattern is unremarkable. There are no dilated loops of small bowel to suggest an obstruction. No renal calculi. No ureteral calculi. Calcifications in the deep pelvis likely represent phleboliths. No radiopaque foreign bodies. Small amount of well-formed stool seen throughout the colon. No pneumoperitoneum or pneumatosis. IMPRESSION: 1. No evidence for bowel obstruction. 2. No radiopaque foreign bodies. ACT 112: Negative or not required by law. Electronically signed by: Dustin Mackenzie M.D. 12/19/2021 1:39 PM Medications Administered Medication List Sodium Bicarbonate 150 meq/ (Dextrose) 1,150 mls @ 250 mls/hr IV .[id number] UZMA Stop: 01/18/22 15:29 Last Admin: 12/19/21 15:48 Dose: 250 mls/hr Documented by: [id number] Discontinued Medications Charcoal/Sorbitol (Activated Charcoal/Sorbitol 25 Gm/120 Ml Tube) 50 gm PO NOW STA Stop: 12/19/21 12:42 Last Admin: 12/19/21 12:52 Dose: 50 gm Documented by: [id number] Sodium Bicarbonate (Sodium Bicarb 8.4% Inj 50 Meq/50 Ml Syr) 100 meq IV NOW STA Stop: 12/19/21 15:15 Last Admin: 12/19/21 15:23 Dose: 100 meq Documented by: [id number] ECG Rate (beats per minute): 76 Rhythm: normal sinus COVID-19 Results Results COVID-19 Adm Lab Results: RBC 5.55 M/uL (4.7-6.1) 12/19/21 WBC 4.03 K/uL (4.8-10.8) L 12/19/21 Hgb 14.9 g/dL (14.0-18.0) 12/19/21 Hct 43.9 % (42-52) 12/19/21 Plt Count 323 K/uL (130-400) 12/19/21 Neutrophils (%) (Auto) 51.0 % 12/19/21 Lymphocytes (%) (Auto) 40.4 % 12/19/21 Monocytes # (Auto) 0.32 K/uL (0.11-0.59) 12/19/21 Eosinophils # (Auto) 0.02 K/uL (0-0.5) 12/19/21 Immature Granulocyte % (Auto) 0.0 % 12/19/21 Neutrophils # (Auto) 2.05 K/uL (1.4-6.5) 12/19/21 Lymphocytes # (Auto) 1.63 K/uL (1.2-3.4) 12/19/21 Monocytes # (Auto) 0.32 K/uL (0.11-0.59) 12/19/21 Eosinophils # (Auto) 0.02 K/uL (0-0.5) 12/19/21 Basophils # (Auto) 0.01 K/uL (0-0.2) 12/19/21 Immature Granulocyte # (Auto) 0.00 K/uL (0.00-0.02) 12/19/21 Na 143 mmol/L (136-145) 12/19/21 K 3.5 mmol/L (3.5-5.1) 12/19/21 Cl 108 mmol/L (98-107) H 12/19/21 CO2 29 mmol/L (21-32) 12/19/21 Anion Gap 6 (3-11) 12/19/21 BUN 10 mg/dl (6-23) 12/19/21 Creatinine 1.34 mg/dl (0.6-1.4) 12/19/21 BUN/Creatinine Ratio 7.5 (10-20) L 12/19/21 Glucose Level 94 mg/dl (70-99(Fasting)) 12/19/21 Ca 8.5 mg/dl (8.5-10.1) 12/19/21 Total Bilirubin 0.6 mg/dl (0.2-1.0) 12/19/21 AST/SGOT 18 U/L (13-39) 12/19/21 ALT/SGPT 14 U/L (7-52) 12/19/21 Alkaline Phosphatase 63 U/L (34-104) 12/19/21 Total Protein 7.5 gm/dl (6.0-8.3) 12/19/21 Albumin 4.7 gm/dl (3.4-5.0) 12/19/21 Globulin 2.8 gm/dl (2.5-4.0) 12/19/21 Albumin/Globulin Ratio 1.7 (0.9-2) 12/19/21 Total CK 352 U/L (30-223) H 12/19/21 Troponin I < 0.03 ng/ml (0-0.04) 12/19/21 SARS-CoV-2, RNA, NAAT NEGATIVE (NEGATIVE) 12/19/21 ABG pH 7.52 (7.35-7.45) H* 12/19/21 ABG pCO2 31 mmHg (35-46) L 12/19/21 ABG pO2 102 mmHg (80-95) H 12/19/21 ABG HCO3 25 mmol/L (19-24) H 12/19/21 ABG O2 Saturation 98.1 % (90-95) H 12/19/21 ABG Base Excess 3.0 mEq/L (-9-1.8) H 12/19/21 Code Status & VTE Plan Code Status FULL CODE VTE Prophylaxis Plan VTE Prophylaxis will be ordered: Yes Supervising Physician Co-Signing Physician Notes I have seen and examined the patient and have discussed the case with the provider above. I agree with the assessment and plan as stated. 36 yo suicidal prisoner presented wtih salicylate overdose in an attempt to commit suicide. He has a history of suicidal attempts in the past and reports being hospitalized for the majority of his adult life. He is tearful but isn't talked out of it. He denies any symptoms after antiemetic was given. Physical exam is unremarkable. He is well built, no neuro deficits and is looking well. Will continue monitoring per poison control recommendations overnight and then he should be sent for inpatient psychiatric management of SI. DO Khurram
--- NOTE | 2021-12-19 16:55 | Electrocardiogram Report ---
Test Reason : Blood Pressure : / mmHG Vent. Rate : 070 BPM Atrial Rate : 070 BPM P-R Int : 182 ms QRS Dur : 088 ms QT Int : 386 ms P-R-T Axes : 078 067 059 degrees QTc Int : 416 ms Normal sinus rhythm with sinus arrhythmia Early repolarization Normal ECG When compared with ECG of 10-APR-2016 13:33, No significant change was found Confirmed by Alexandr Michaels ([id number]) on 12/19/2021 4:55:08 PM Referred By: Avinash ROSALES Confirmed By:Ke Michaels
[2021-12-19 17:01] LABS: HCO3 ABG 25 mmol/L (19-24); Oxygen Saturation ABG 98.1 % (90-95); PCO2 ABG 31 mmHg (35-46); PO2 ABG 102 mmHg (80-95)
[2021-12-19 17:04] LABS: Allen Test Pos (Pos); pH ABG 7.52 (7.35-7.45)
[2021-12-19 17:17] LABS: Troponin I < 0.03 ng/ml (0-0.04)
[2021-12-19 17:26] LABS: Magnesium 2.2 mg/dl (1.7-2.4); Potassium 3.8 mmol/L (3.5-5.1)
[2021-12-19 18:48] LABS: Oxygen Saturation VBG 94.2 %; pH VBG 7.49 (7.36-7.41)
[2021-12-19 20:47] LABS: Base Excess VBG 3.9 mEq/L; Oxygen Saturation VBG 85.2 %; pH VBG 7.47 (7.36-7.41)
[2021-12-19 20:54] LABS: BUN Creatinine Ratio 7.5 (10-20); Calcium 9.1 mg/dl (8.5-10.1); Creatinine Clr Calc Pharmacy 85.9 ml/min; Est GFR (African American) 78.6 ml/min; Est GFR (Non-African American) 67.8 ml/min; Magnesium 2.2 mg/dl (1.7-2.4); Potassium 3.7 mmol/L (3.5-5.1)
[2021-12-19] MEDS ORDERED: ALUMINUM/MAGNESIUM/SIMETH (MAALOX MAX) 30 ML UDC PO STA (20:58)
[2021-12-19 21:04] LABS: BUN Creatinine Ratio 7.5 (10-20); Calcium 8.5 mg/dl (8.5-10.1); Creatinine Clr Calc Pharmacy 85.3 ml/min; Est GFR (African American) 77.9 ml/min; Est GFR (Non-African American) 67.2 ml/min; Magnesium 2.1 mg/dl (1.7-2.4); Potassium 3.5 mmol/L (3.5-5.1)
[2021-12-19] MEDS ORDERED: ACETAMINOPHEN 325 MG TAB PO PRN (22:41)
[2021-12-19] MEDS ORDERED: ONDANSETRON INJ 2 MG/ML 2 ML VIAL IV PRN (22:41)
[2021-12-19 22:51] LABS: Base Excess VBG 6.6 mEq/L; Oxygen Saturation VBG 88.7 %; pH VBG 7.49 (7.36-7.41)
[2021-12-19 23:08] LABS: Anion Gap 7 (3-11); BUN Creatinine Ratio 7.2 (10-20); Blood Urea Nitrogen 10 mg/dl (6-23); Calcium 8.5 mg/dl (8.5-10.1); Carbon Dioxide 30 mmol/L (21-32); Chloride 105 mmol/L (98-107); Creatinine Clr Calc Pharmacy 82.8 ml/min; Est GFR (African American) 75.2 ml/min; Est GFR (Non-African American) 64.9 ml/min; Glucose 98 mg/dl (70-99(Fasting)); Potassium 3.3 mmol/L (3.5-5.1); Sodium 142 mmol/L (136-145)
[2021-12-19 23:29] LABS: Troponin I < 0.03 ng/ml (0-0.04)
[2021-12-19] MEDS: PRAZOSIN HCL 1 MG CAP PO SCH (23:35)
[2021-12-20 01:14] LABS: Base Excess VBG 6.3 mEq/L; Oxygen Saturation VBG 93.2 %; pH VBG 7.49 (7.36-7.41)
[2021-12-20 01:28] LABS: BUN Creatinine Ratio 6.4 (10-20); Calcium 8.2 mg/dl (8.5-10.1); Creatinine Clr Calc Pharmacy 81.1 ml/min; Est GFR (African American) 73.2 ml/min; Est GFR (Non-African American) 63.2 ml/min
[2021-12-20 02:39] LABS: Base Excess VBG 7.7 mEq/L; HCO3 VBG 32 mmol/L; Oxygen Saturation VBG 96.9 %; PCO2 VBG 44 mmHg (38-50); PO2 VBG 88 mmHg; pH VBG 7.48 (7.36-7.41)
[2021-12-20 03:01] LABS: BUN Creatinine Ratio 6.5 (10-20); Calcium 8.1 mg/dl (8.5-10.1); Creatinine Clr Calc Pharmacy 82.2 ml/min; Est GFR (African American) 74.5 ml/min; Est GFR (Non-African American) 64.3 ml/min; Magnesium 1.9 mg/dl (1.7-2.4); Potassium 2.9 mmol/L (3.5-5.1)
[2021-12-20] MEDS ORDERED: POTASSIUM CHLORIDE CRTAB 20 MEQ TABCR PO STA (04:16)
[2021-12-20 04:49] LABS: Hematocrit (blood only) 37.2 % (42-52); Hemoglobin 12.6 g/dL (14.0-18.0); Mean Corpuscular Hemoglobin 27.1 pg (25-34); Mean Corpuscular Hgb Conc 33.9 g/dL (32-36); Mean Platelet Volume 9.1 fL (7.4-10.4); Platelet Count 243 K/uL (130-400); RDW Coefficient of Variation 13.7 % (11.5-14.5); RDW Standard Deviation 39.2 fL (36.4-46.3); Red Blood Count 4.65 M/uL (4.7-6.1); White Blood Count 4.73 K/uL (4.8-10.8)
[2021-12-20 04:56] LABS: Base Excess VBG 6.9 mEq/L; HCO3 VBG 31 mmol/L; Oxygen Saturation VBG 97.2 %; PCO2 VBG 42 mmHg (38-50); PO2 VBG 91 mmHg; pH VBG 7.49 (7.36-7.41)
[2021-12-20] MEDS: POTASSIUM CHLORIDE / WTR 10 MEQ/100 ML PLCT IV SCH ×2 (05:05→05:51)
[2021-12-20 05:20] LABS: Albumin Globulin Ratio 1.7 (0.9-2); Albumin Level 3.5 gm/dl (3.4-5.0); BUN Creatinine Ratio 6.3 (10-20); Bilirubin,Total 0.6 mg/dl (0.2-1.0); Calcium 8.2 mg/dl (8.5-10.1); Creatinine Clr Calc Pharmacy 79.9 ml/min; Est GFR (Non-African American) 62.1 ml/min; Globulin 2.1 gm/dl (2.5-4.0); Total Protein 5.6 gm/dl (6.0-8.3)
[2021-12-20 07:05] LABS: Base Excess VBG 6.9 mEq/L; pH VBG 7.46 (7.36-7.41)
[2021-12-20 07:31] LABS: BUN Creatinine Ratio 5.6 (10-20); Calcium 8.5 mg/dl (8.5-10.1); Creatinine Clr Calc Pharmacy 79.4 ml/min; Est GFR (African American) 71.4 ml/min; Est GFR (Non-African American) 61.6 ml/min; Potassium 3.6 mmol/L (3.5-5.1)
[2021-12-20 08:42] LABS: Base Excess VBG 5.7 mEq/L; Oxygen Saturation VBG 94.3 %; pH VBG 7.45 (7.36-7.41)
[2021-12-20 09:07] LABS: BUN Creatinine Ratio 5.7 (10-20); Calcium 8.7 mg/dl (8.5-10.1); Creatinine Clr Calc Pharmacy 81.1 ml/min; Est GFR (African American) 73.2 ml/min; Est GFR (Non-African American) 63.2 ml/min; Magnesium 2.2 mg/dl (1.7-2.4); Potassium 3.4 mmol/L (3.5-5.1)
--- NOTE | 2021-12-20 10:48 | Electrocardiogram Report ---
Test Reason : Blood Pressure : / mmHG Vent. Rate : 076 BPM Atrial Rate : 076 BPM P-R Int : 180 ms QRS Dur : 084 ms QT Int : 378 ms P-R-T Axes : 075 080 074 degrees QTc Int : 425 ms Normal sinus rhythm with sinus arrhythmia Early repolarization Normal ECG When compared with ECG of 19-DEC-2021 12:31, (unconfirmed) No significant change was found Confirmed by Alexandr Michaels ([id number]) on 12/20/2021 10:47:46 AM Referred By: Avinash SCI Confirmed By:Ke Michaels
[2021-12-20 11:08] LABS: pH VBG 7.44 (7.36-7.41)
[2021-12-20 11:24] LABS: BUN Creatinine Ratio 5.4 (10-20); Calcium 8.6 mg/dl (8.5-10.1); Creatinine Clr Calc Pharmacy 77.8 ml/min; Est GFR (African American) 69.6 ml/min; Est GFR (Non-African American) 60.1 ml/min; Potassium 3.4 mmol/L (3.5-5.1)
--- NOTE | 2021-12-20 11:52 | Psychiatric Consultation ---
Date of Consultation December 20, 2021 Impression / Recommendations Impression Diagnostically consistent with persistent depressive disorder versus cluster B/borderline PD given chronic SI and emotional state of numbness chronically. Given sexual side effects with medications in the past could consider WEllbutrin XL 150mg qd trial in the future for depression. Remains at elevated acute and chronic risk given likely BPD vs persistent depression however due incarceration can be closely monitored and limits access to any lethal means. Additionally he is working to move into more therapeutic setting within the longterm for additional opportunities for therapy. Discussed recommendation for DBT focused therapy approaches to reduce acute and chronic risk. (1) Suicide attempt: (2) Depression: (3) PTSD (post-traumatic stress disorder): (4) Antisocial personality disorder: -Guards providing 1-on-1 at bedside and can return to [facility] on suicide precautions Risk Factors Assessment Do You Have Access To A Gun?: No Psych History Identifying Data 36 yo man and currently incarcerated at [facility] with history of depression, antisocial personality disorder, PTSD, and depression admitted medically following suicide attempt via ingestion of aspirin (~50 tabs of 325mg). Psychiatry consulted for medication and disposition recommendations. Chief Complaint "I've always been depressed". History of Present Illness Sheldon endorses a long history of depression, since age 8. He cannot cite any specific triggers for his suicide attempt other than worsening depression and chronic SI. Endorses depressive symptoms of hopelessness, insomnia, anhedonia, numb emotional state (likes exercise and being outside in the cold "because it's the only time I feel things"), low energy. States he's tried lots of SSRI medications in the past and doesn't like sexual side effects. States he feels relieved to have survived suicide attempt because he knows he has family and people who love him "like my 9 year old son" but also feels chronically depressed and hopeless life will ever get better. Has been incarcerated for 14 years and is up for parole in March. History of cutting. Denies history of cassie nor seizures nor eating disorder. No cassie nor psychosis on psych ROS. Past Psychiatric History Previous Psych History: see HPI Do You Have Access To A Gun?: No Allergies Allergy/AdvReac Type Severity Reaction Status Date / Time Fish Allergy Unknown UNKN Uncoded 12/19/21 15:49 Home Medications Medication Instructions Recorded Confirmed Type prazosin 2 mg capsule 2 mg PO HS 12/19/21 12/19/21 History Substance Abuse History incarcerated in controlled setting Personal History Living Arrangements: incarcerated Patient History Medical History Antisocial personality disorder Depression PTSD (post-traumatic stress disorder) Surgical History History of appendectomy History of hand surgery R hand reconstruction Family History Other Diabetes Hypertension Social History Smoking Status: Current every day smoker Current Living Situation: Other Current Living Situation Comment: Correctional facility Feels Safe at Home: Yes Physical Exam Psychiatric: Orientation: alert Apperance: appropriately dressed and appropriately groomed Eye Contact: good eye contact Motor Behavior: no abnormal motor movements Speech: normal rate/rhythm/volume of speech Affect: + constricted affect Mood: + depressed mood Thought Process: goal directed thought process Thought Content: reality based without delusions Suicidal Thoughts: denies suicidal thoughts (currently, but has chronic SI) Homicidal Thoughts: denies homicidal thoughts Hallucinations: no auditory hallucinations and no visual hallucinations Cognition: recent memory grossly intact, remote memory grossly intact, attention grossly intact and language grossly intact Insight: + limited insight Judgement: + limited judgement Vital Signs (Past 24 Hours): Last Vital Signs Temp 36.4 C L 12/19/21 12:06 Pulse 69 12/20/21 11:00 Resp 10 L 12/20/21 11:00 BP 117/51 L 12/20/21 11:00 Pulse Ox 98 12/20/21 11:00 Review of Systems All systems reviewed & are unremarkable except as noted in HPI & below Results & Data (PSY) Medications Administered Prazosin HCl (Prazosin Hcl 1 Mg Cap) 2 mg PO HS UZMA Stop: 01/18/22 22:40 Last Admin: 12/19/21 23:35 Dose: 2 mg Documented by: [id number] Coding Level of Care Code 33877 Inpt Consult Level 3 Diagnoses Suicide attempt T14.91XA Depression F32.A PTSD (post-traumatic stress disorder) F43.10 Antisocial personality disorder F60.2
[2021-12-20] MEDS ORDERED: STAT IV STA (11:55)
--- NOTE | 2021-12-20 12:12 | Consultation Report ---
NEPHROLOGY CONSULTATION NOTE DATE OF SERVICE: 12/20/2021 REASON FOR CONSULTATION: Drug overdose with salicylate. HISTORY OF PRESENT ILLNESS: The patient is a 36-year-old male with antisocial personality disorder, PTSD, depression, who is currently a resident at the [facility]. He took about 50 tablets of aspirin yesterday around 10:30 in the morning, after which he was brought to the hospital. Poison Control Center has been involved in the case right from the beginning and has been guiding treatment. As of now, the patient has received activated charcoal in the Emergency Department. He also got sodium bicarbonate as well as ongoing bicarbonate drip. As of now, he appears to be very stable. Kidney function is only mildly abnormal. Potassium is low, but otherwise electrolytes are fine and anion gap is normal. Arterial blood gas done in the beginning showed slight alkalosis, but more recent ones appeared to be fairly good. He is also hemodynamically stable. He is making urine and denies any other complaints at this time. ALLERGIES: ALLERGY LIST IS REVIEWED AND PER THE RECONCILIATION LIST. HOME MEDICATIONS: He used to be on prazosin, which also has been stopped recently. PAST MEDICAL HISTORY: Antisocial personality disorder, depression, posttraumatic stress disorder. PAST SURGICAL HISTORY: Appendicectomy, hand surgery reconstruction. FAMILY HISTORY: Positive for diabetes, hypertension. SOCIAL HISTORY: Current everyday smoker. Previous drug use. Currently a resident of correctional facility. REVIEW OF SYSTEMS: Twelve systems reviewed and are otherwise negative. PHYSICAL EXAMINATION: GENERAL: Young black male who is not in any respiratory distress. He seemed to have flat affect at this time. He is awake, alert, oriented x3. VITAL SIGNS: Blood pressure 117/51, pulse rate 69, temperature 36.4 and 98% on room air. HEENT: Mucous membrane is moist. NECK: Supple. No jugular venous distention. CHEST: Bilaterally clear to auscultation. CARDIOVASCULAR: S1 and S2 regular. ABDOMEN: Soft, nontender. EXTREMITIES: Show no edema. NEUROLOGIC: He is awake, alert, oriented, moving all 4 extremities. Normal speech. Following command. LABORATORY TEST: Most recent blood work shows sodium 140, potassium 3.4, creatinine 1.47, BUN 8, glucose 101, calcium 8.6. Lactic acid normal. Magnesium normal. Liver function test also fairly normal. Hemoglobin 12.6, WBC count 4.73. X-ray KUB was unremarkable. ASSESSMENT AND PLAN: A 36-year-old male who presented from the skilled nursing system following intentional intake of about 50 tablets of aspirin. I have been consulted for potential acid base, electrolyte and renal dysfunction associated with salicylate overdose. RECOMMENDATIONS: Fortunately, it does not seem that it has affected his overall acid base or electrolyte that much. At this point, we can lower the rate of the bicarbonate drip to about 75 mL per hour. Potassium is slightly low, but that is because of the ongoing bicarbonate drip. Continue to supplement potassium. His salicylate level has been checked multiple times and it has come down from 37 at the time of admission to the most recent one of 6.1, which is essentially at a noncritical level, but still somewhat high. No further management is needed as he seems to be recovering on his own. Thank you very much for the consult. Job ID: [id number] PAPI
[2021-12-20 12:51] LABS: Oxygen Saturation VBG 79.7 %; pH VBG 7.43 (7.36-7.41)
[2021-12-20 13:09] LABS: BUN Creatinine Ratio 5.1 (10-20); Calcium 8.6 mg/dl (8.5-10.1); Est GFR (African American) 76.5 ml/min; Potassium 3.8 mmol/L (3.5-5.1)
[2021-12-20] MEDS: SODIUM BICARBONATE 8.4% 150 MEQ in DEXTROSE 5% 1,000 ML IV SCH ×2 (14:06→18:04)
--- NOTE | 2021-12-20 19:38 | Hospitalist Progress Note ---
Date of Service December 20, 2021 Assessment & Plan (1) Salicylate overdose: (2) Suicidal ideation: (3) Hypertension: Plan: This is a 36 yr old M who has a significant PMH of Antisocial personality disorder, PTSD, Depression, former marijuana use who presents to ED for salicylate intentional OD. Pt took approx 50 tablets of 325mg ASA at 10-1030a.m. Intentional salicylate overdose Suicidal ideation Poison control contacted by ED provider Activated charcoal given in ED Received sodium bicarb 150 Meq gtt + D5 started in ED Goal urine pH is 7.5-7.55 VBG, BMP, Salicylate level, mag [id number] a lot Suicide precautions, safe tray Consult psychiatry-appreciate input and recommendation. Can be discharged as he has one-to-one sitter at the halfway Remains stable without any neurological symptoms Kidney function and electrolytes have been normalized We will check CBC and BMP in the morning L sided chest pain/epigastric pain likely in setting of overdose give antiemetics prn IV pepcid x 1 now EKG okay, will check trop x 2 for completeness-early repolarization changes No more cardiac symptoms Depression PTSD Antisocial personality disorder continue prazosin psych consulted 2/2 to suicide attempt HTN on prazosin for dual purposes monitor, bp stable DVT ppx: SCD/TEDS for now Dispo: PCU until salicylate level peaks and pt remains stable FULL CODE PCP: Avinash Pinon SCI Admission and Anticipated Discharge Date Admission Date: December 19, 2021 Subjective Patient was seen and examined emergency room He has been complaining of epigastric discomfort without any nausea or vomiting Denies any shortness of breath, palpitation Review of Systems Review of Systems: All systems reviewed and are unremarkable except as noted below Gastrointestinal: Epigastric discomfort with nausea Physical Exam Physical Exam: Lying in bed comfortably Constitutional: well developed and well nourished; not ill appearing Eyes: PERRL, conjunctivae normal, anicteric sclerae ENMT: external ear and nose normal, oropharynx normal Neck: trachea midline, no thyromegaly Respiratory: no respiratory distress Auscultation: lungs clear to auscultation bilaterally Cardiovascular: Rate/Rhythm: regular rate and regular rhythm; not tachycardic Heart Sounds: normal S1 and normal S2; no murmur Extremities: no edema Gastrointestinal (Abdomen): Inspection/Auscultation: abdomen not distended Percussion/Palpation: + abdomen tender (Minimal tenderness in the epigastrium) and abdomen soft Musculoskeletal: No acute arthritis in any joint Neurologic: Alert, awake and oriented x3. No focal sensory and motor deficit appreciated Results & Data Results & Data ([facility]) Vital Signs (Past 12 Hours) Vital Signs Temp Pulse Pulse Resp BP BP Pulse Ox 12/20/21 17:31 70 12/20/21 16:45 37.1 C 67 16 125/71 99 12/20/21 11:00 69 10 L 117/51 L 98 12/20/21 10:00 63 18 122/66 98 12/20/21 09:00 65 18 122/61 96 12/20/21 08:31 69 16 139/62 98 12/20/21 08:00 79 26 H 139/62 96 Laboratory Results Short CBC 12/20/21 Range/Units 04:39 WBC 4.73 L (4.8-10.8) K/uL Hgb 12.6 L (14.0-18.0) g/dL Hct 37.2 L (42-52) % Plt Count 243 (130-400) K/uL BMP 12/19/21 12/19/21 12/19/21 18:31 20:24 22:37 Sodium 145 143 142 Potassium 3.7 3.5 3.3 L Chloride 109 H 108 H 105 Carbon Dioxide 26 29 30 BUN 10 10 10 Creatinine 1.33 1.34 1.38 Glucose 88 94 98 Calcium 9.1 8.5 8.5 12/20/21 12/20/21 12/20/21 01:00 02:29 04:39 Sodium 141 141 141 Potassium 3.0 L 2.9 L 3.0 L Chloride 104 103 103 Carbon Dioxide 31 32 32 BUN 9 9 9 Creatinine 1.41 H 1.39 1.43 H Glucose 97 108 H 92 Calcium 8.2 L 8.1 L 8.2 L 12/20/21 12/20/21 12/20/21 06:49 08:25 10:53 Sodium 140 140 140 Potassium 3.6 3.4 L 3.4 L Chloride 105 106 106 Carbon Dioxide 30 30 29 BUN 8 8 8 Creatinine 1.44 H 1.41 H 1.47 H Glucose 87 93 101 H Calcium 8.5 8.7 8.6 12/20/21 12:36 Sodium 139 Potassium 3.8 Chloride 106 Carbon Dioxide 29 BUN 7 Creatinine 1.36 Glucose 94 Calcium 8.6 Cardiac Enzymes 12/19/21 Range/Units 22:37 Troponin I < 0.03 (0-0.04) ng/ml Liver Function 12/20/21 Range/Units 04:39 Total Bilirubin 0.6 (0.2-1.0) mg/dl AST 14 (13-39) U/L ALT 12 (7-52) U/L Alkaline Phosphatase 48 (34-104) U/L Albumin 3.5 (3.4-5.0) gm/dl Urine 12/19/21 12/20/21 12/20/21 Range/Units 21:32 05:02 10:30 Urine pH >= 9.0 H >= 9.0 H >= 9.0 H (4.5-7.5) 12/20/21 Range/Units 15:05 Urine pH 8.5 H (4.5-7.5) Medications Administered Current Inpatient Medications Acetaminophen (Acetaminophen 325 Mg Tab) 650 mg PO Q4H PRN PRN Reason: Pain or Fever Stop: 01/18/22 22:40 Sodium Bicarbonate 150 meq/ (Dextrose) 1,150 mls @ 75 mls/hr IV .[id number] UZMA Stop: 01/19/22 11:59 Last Admin: 12/20/21 14:06 Dose: 75 mls/hr Documented by: Ondansetron HCl (Ondansetron Inj 2 Mg/Ml 2 Ml Vial) 4 mg IV Q6H PRN PRN Reason: Nausea Stop: 01/18/22 22:40 Prazosin HCl (Prazosin Hcl 1 Mg Cap) 2 mg PO HS UZMA Stop: 01/18/22 22:40 Last Admin: 12/19/21 23:35 Dose: 2 mg Documented by: (1) Salicylate overdose Encounter type: initial encounter Injury intent: intentional self-harm Qualified Code(s): T39.092A - Poisoning by salicylates, intentional self-harm, initial encounter
[2021-12-20] MEDS: PRAZOSIN HCL 1 MG CAP PO SCH (20:56)
[2021-12-21] MEDS: SODIUM BICARBONATE 8.4% 150 MEQ in DEXTROSE 5% 1,000 ML IV SCH (06:38)
[2021-12-21 07:13] LABS: Basophils # (auto) 0.01 K/uL (0-0.2); Basophils % (auto) 0.2 %; Eosinophils % (auto) 1.8 %; Hematocrit (blood only) 40.4 % (42-52); Lymphocytes # (auto) 2.68 K/uL (1.2-3.4); Lymphocytes % (auto) 48.4 %; Mean Corpuscular Hemoglobin 26.2 pg (25-34); Mean Corpuscular Hgb Conc 32.2 g/dL (32-36); Mean Corpuscular Volume 81.5 fL (80-100); Mean Platelet Volume 9.3 fL (7.4-10.4); Monocytes % (auto) 7.2 %; Neutrophils # (auto) 2.35 K/uL (1.4-6.5); Neutrophils % (auto) 42.4 %; Platelet Count 242 K/uL (130-400); RDW Coefficient of Variation 13.5 % (11.5-14.5); RDW Standard Deviation 40.4 fL (36.4-46.3); Red Blood Count 4.96 M/uL (4.7-6.1); White Blood Count 5.54 K/uL (4.8-10.8)
[2021-12-21 07:31] LABS: Albumin Globulin Ratio 1.6 (0.9-2); Albumin Level 3.6 gm/dl (3.4-5.0); BUN Creatinine Ratio 7.3 (10-20); Bilirubin,Total 0.4 mg/dl (0.2-1.0); Calcium 8.8 mg/dl (8.5-10.1); Creatinine Clr Calc Pharmacy 92.2 ml/min; Est GFR (African American) 85.5 ml/min; Est GFR (Non-African American) 73.8 ml/min; Globulin 2.2 gm/dl (2.5-4.0); Phosphorus 3.7 mg/dl (2.5-4.9); Potassium 3.5 mmol/L (3.5-5.1); Total Protein 5.8 gm/dl (6.0-8.3)
[2021-12-21] MEDS ORDERED: POTASSIUM CHLORIDE CRTAB 20 MEQ TABCR PO ONE (09:36)
--- NOTE | 2021-12-21 10:04 | Nephrology Progress Note ---
Date of Service December 21, 2021 Assessment & Plan Admission and Anticipated Discharge Date Admission Date: December 19, 2021 Subjective S--no new issues PHYSICAL EXAMINATION: GENERAL: Young black male who is not in any respiratory distress. He seemed to have flat affect at this time. He is awake, alert, oriented x3. VITAL SIGNS: Blood pressure 117/51, pulse rate 69, temperature 36.4 and 98% on room air. HEENT: Mucous membrane is moist. NECK: Supple. No jugular venous distention. CHEST: Bilaterally clear to auscultation. CARDIOVASCULAR: S1 and S2 regular. ABDOMEN: Soft, nontender. EXTREMITIES: Show no edema. NEUROLOGIC: He is awake, alert, oriented, moving all 4 extremities. Normal speech. Following command. LABORATORY TEST: Stable to better ASSESSMENT AND PLAN: A 36-year-old male who presented from the shelter system following intentional intake of about 50 tablets of aspirin. I have been consulted for potential acid base, electrolyte and renal dysfunction associated with salicylate overdose. RECOMMENDATIONS: Fortunately, it does not seem that it has affected his overall acid base or electrolyte that much. 1 Can check Salicylate level once daily now. 2 bicarb drip till AM tomorrow 3 Also no need to check urine ph so often. 4 Psych Consult. 5 Will sign off and call if new issues 6. No further management is needed as he seems to be recovering on his own. Results & Data ([facility]) Vital Signs (Past 12 Hours) Vital Signs Temp Pulse Pulse Resp BP Pulse Ox 12/21/21 07:53 68 12/21/21 07:01 36.6 C 60 18 134/72 96 12/21/21 03:00 36.9 C 64 17 119/72 95 12/20/21 23:44 69 12/20/21 22:59 36.8 C 78 18 134/75 96
[2021-12-21] MEDS: FAMOTIDINE 10 MG TABLET PO SCH ×2 (10:58→19:56)
--- NOTE | 2021-12-21 12:37 | Hospitalist Progress Note ---
Date of Service December 21, 2021 Assessment & Plan (1) Salicylate overdose: (2) Suicidal ideation: (3) Hypertension: Plan: Patient is a 36 yr Male with H/O Antisocial personality disorder, PTSD, Depression, former marijuana use who presents to ED for salicylate intentional OD. Pt took approx 50 tablets of 325mg ASA at 10-1030a.m. Intentional salicylate overdose Suicidal ideation Poison control contacted by ED provider Activated charcoal given in ED Goal urine pH is 7.5-7.55 Continue IV bicarbonate as per nephrology Appreciate nephrology input We will recheck salicylate level tomorrow Appreciate psychiatry input Left sided chest pain/epigastric pain likely in setting of overdose Chronic intermittent left sided pain for about 2-3 yrs as per patient No panic attacks or precipitating factors Troponin negative EKG unchanged Depression PTSD Antisocial personality disorder continue prazosin Appreciate psychiatry Input Consider starting on Wellbutrin XL 150mg daily as outpatient HTN on prazosin monitor DVT px: SCD/TEDS Code status FULL CODE Admission and Anticipated Discharge Date Admission Date: December 19, 2021 Subjective Patient is seen and examined at bedside States having minimal abdominal discomfort, constipation Offers no other complaints Discussed with nephrology today Denies any chest pain, dyspnea, dizziness, nausea Review of Systems Review of Systems: All systems reviewed & are unremarkable except as noted in Subjective Physical Exam Physical Exam: Physical Exam: Vitals signs as noted above General Appearance:Moderately built and nourished, no apparent distress Head: normocephalic, Atraumatic Eyes: normal inspection, EOMI Neck: supple, Trachea midline Respiratory/Chest: Normal breath sounds, CTA, No accessory muscle use Cardiovascular: S1, S2, No murmur Abdomen/GI:Soft, Non tender, Bowel sounds present Extremities/Musculoskeletal:normal inspection, no edema Neurologic/Psych:AAOX3, grossly no focal neurological deficits Skin: normal color, warm Results & Data Results & Data ([facility]) Vital Signs (Past 12 Hours) Vital Signs Temp Pulse Pulse Resp BP Pulse Ox 12/21/21 11:01 36.8 C 55 L 18 137/68 96 12/21/21 07:53 68 12/21/21 07:01 36.6 C 60 18 134/72 96 12/21/21 03:00 36.9 C 64 17 119/72 95 Laboratory Results Short CBC 12/21/21 Range/Units 06:47 WBC 5.54 (4.8-10.8) K/uL Hgb 13.0 L (14.0-18.0) g/dL Hct 40.4 L (42-52) % Plt Count 242 (130-400) K/uL BMP 12/20/21 12/21/21 12:36 06:47 Sodium 139 139 Potassium 3.8 3.5 Chloride 106 106 Carbon Dioxide 29 28 BUN 7 9 Creatinine 1.36 1.24 Glucose 94 101 H Calcium 8.6 8.8 Liver Function 12/21/21 Range/Units 06:47 Total Bilirubin 0.4 (0.2-1.0) mg/dl AST 14 (13-39) U/L ALT 13 (7-52) U/L Alkaline Phosphatase 58 (34-104) U/L Albumin 3.6 (3.4-5.0) gm/dl Urine 12/20/21 Range/Units 15:05 Urine pH 8.5 H (4.5-7.5) (1) Salicylate overdose Encounter type: initial encounter Injury intent: intentional self-harm Qualified Code(s): T39.092A - Poisoning by salicylates, intentional self-harm, initial encounter
[2021-12-21] MEDS: SODIUM BICARBONATE 8.4% 100 MEQ in WATER, STERILE 1,000 ML IV SCH (13:47)
[2021-12-21] MEDS ORDERED: POLYETHYLENE (MIRALAX) 17 GM PACK PO PRN (14:05)
[2021-12-21] MEDS ORDERED: DOCUSATE SODIUM 100 MG CAP PO PRN (14:05)
[2021-12-21] MEDS: PRAZOSIN HCL 1 MG CAP PO SCH (19:56)
[2021-12-22] MEDS: SODIUM BICARBONATE 8.4% 100 MEQ in WATER, STERILE 1,000 ML IV SCH (04:16)
[2021-12-22 07:29] LABS: BUN Creatinine Ratio 11.8 (10-20); Calcium 8.9 mg/dl (8.5-10.1); Creatinine Clr Calc Pharmacy 103.9 ml/min; Est GFR (African American) 98.9 ml/min; Est GFR (Non-African American) 85.3 ml/min
[2021-12-22] MEDS: FAMOTIDINE 10 MG TABLET PO SCH (08:29)
--- NOTE | 2021-12-22 12:14 | Hospitalist Progress Note ---
Date of Service December 22, 2021 Assessment & Plan (1) Salicylate overdose: (2) Suicidal ideation: (3) Hypertension: Plan: Patient is a 36 yr Male with H/O Antisocial personality disorder, PTSD, Depression, former marijuana use who presents to ED for salicylate intentional OD. Pt took approx 50 tablets of 325mg ASA at 10-1030a.m. Intentional salicylate overdose Suicidal ideation Poison control contacted by ED provider Activated charcoal given in ED Goal urine pH is 7.5-7.55 Will discontinue IV bicarbonate today Appreciate nephrology input salicylate level much improved Appreciate psychiatry input Plan to discharge today Left sided chest pain/epigastric pain likely in setting of overdose Chronic intermittent left sided pain for about 2-3 yrs as per patient No panic attacks or precipitating factors Troponin negative EKG unchanged Resolved Depression PTSD Antisocial personality disorder continue prazosin Appreciate psychiatry Input Consider starting on Wellbutrin XL 150mg daily as outpatient HTN on prazosin monitor DVT px: SCD/TEDS Code status FULL CODE Admission and Anticipated Discharge Date Admission Date: December 19, 2021 Subjective Patient is seen and examined at bedside Doing well today No new complaints Discussed with nephrology today Denies any chest pain, dyspnea, dizziness, nausea, abd pain Review of Systems Review of Systems: All systems reviewed & are unremarkable except as noted in Subjective Physical Exam Physical Exam: Physical Exam: Vitals signs as noted above General Appearance:Moderately built and nourished, no apparent distress Head: normocephalic, Atraumatic Eyes: normal inspection, EOMI Neck: supple, Trachea midline Respiratory/Chest: Normal breath sounds, CTA, No accessory muscle use Cardiovascular: S1, S2, No murmur Abdomen/GI:Soft, Non tender, Bowel sounds present Extremities/Musculoskeletal:normal inspection, no edema Neurologic/Psych:AAOX3, grossly no focal neurological deficits Skin: normal color, warm Results & Data Results & Data ([facility]) Vital Signs (Past 12 Hours) Vital Signs Temp Pulse Pulse Resp BP Pulse Ox 12/22/21 11:37 36.7 C 65 19 151/91 H 98 12/22/21 08:00 54 L 12/22/21 03:36 36.9 C 66 18 138/75 97 Laboratory Results BMP 12/22/21 06:50 Sodium 139 Potassium 4.0 Chloride 106 Carbon Dioxide 29 BUN 13 Creatinine 1.10 Glucose 96 Calcium 8.9 (1) Salicylate overdose Encounter type: initial encounter Injury intent: intentional self-harm Qualified Code(s): T39.092A - Poisoning by salicylates, intentional self-harm, initial encounter
--- NOTE | 2021-12-22 12:24 | Discharge Summary ---
Date of Service December 22, 2021 Admission HPI Per Admitting Provider This is a 36 yr old M who has a significant PMH of Antisocial personality disorder, PTSD, Depression, former marijuana use who presents to ED for salicylate intentional OD. Pt took approx 50 tablets of 325mg ASA at 10-1030a.m. He has done this in the past. He had intent to kill himself. He feels like he has so many things asked of him and he just can't do it anymore. He previously was on antidepressants but stopped them last month due to feeling like they aren't helping. He states he was hospitalized in past for this including our facility but I do not see any records. Currently he is complaining of epigastric abd pain, nausea and L sided chest pain. Chest pain is nonradiating, nothing makes it better or worse, described as an ache, 1 out of 10, not made worse with inspiration or movement, he has had in the past, but currently is constant. He denies any fever, chills, sweats, lightheadedness, dizziness, tinnitus, SOB, cough, vomiting, diarrhea, change in bowel or urinary habits. Currently he denies intent to harm others. In ED poison control was made aware of patient case. It was advised to give activated charcoal and start sodium bicarbonate. Initial CBC, CMP, VBG unremarkable. CK elevated at 352. Initial salicylate level WNL, but repeat 2 hours later was 37. Admission Exam Per Admitting Provider Physical Exam Physical Exam: Constitutional: WD/WN, vitals as above, NAD, sitting up in bed, pleasant, conversing easily Head: Normocephalic, Atraumatic Eyes: PERRL, conjunctivae normal, anicteric sclerae ENMT: external ear and nose normal, oropharynx normal Neck: trachea midline, no thyromegaly normal visual inspection Respiratory: normal respiratory effort, lungs clear to auscultation, no wheeze, rales, rhonchi. Normal insp/exp effort, no accessory muscle use Cardiovascular: RRR, no murmur, no edema Vessels: no JVD or carotid bruit Chest: normal inspection of chest, L chest wall pain reproducible Abdomen: normal bowel sounds, soft, +epigastric discomfort, no rebound/guarding, no hepatosplenomegaly Musculoskeletal: no cyanosis or clubbing, extremities motor strength 5/5 Skin: no rashes, warm and dry normal turgor Neurologic: PERRL, EOMI, accommodation nl, no face palsy, no dysarthria CN's II-XI intact bilaterally and moves all extremities Psychiatric: A+Ox3, euthymic affect Lymphatic: no cervical or axillary lymphadenopathy : deferred Principal Diagnosis Intentional salicylate overdose Depression Constipation Discharge Data Allergies Allergy/AdvReac Type Severity Reaction Status Date / Time fish derived Allergy Unknown Unknown Verified 12/21/21 12:55 Consultations 12/19/21 15:40 ED Decision to Admit Stat 12/19/21 15:55 Consult Psychiatry Routine 12/19/21 15:55 Consult Nephrology Routine Hospital Course (1) Salicylate overdose: (2) Suicidal ideation: (3) Hypertension: Patient is a 36 yr Male with H/O Antisocial personality disorder, PTSD, Depression, former marijuana use who presents to ED for salicylate intentional OD. Pt took approx 50 tablets of 325mg ASA at 10-1030a.m. Intentional salicylate overdose Suicidal ideation Poison control contacted by ED provider Activated charcoal given in ED Goal urine pH is 7.5-7.55 Will discontinue IV bicarbonate today Appreciate nephrology input salicylate level much improved Appreciate psychiatry input Plan to discharge today Left sided chest pain/epigastric pain likely in setting of overdose Chronic intermittent left sided pain for about 2-3 yrs as per patient No panic attacks or precipitating factors Troponin negative EKG unchanged Resolved Depression PTSD Antisocial personality disorder continue prazosin Appreciate psychiatry Input Consider starting on Wellbutrin XL 150mg daily as outpatient HTN on prazosin monitor DVT px: SCD/TEDS Code status FULL CODE Total Time Total Time Spent Total Time Spent (In Minutes): 40 minutes Discharge Plan Discharge Items [facility] Reason For Visit: SALICYLATE POISOINING Discharge Diagnosis: Intentional salicylate overdose Depression Constipation Activity: Per Instructions section Exercise/Sports: Gradually increase as tolerated Non-emergency contact: Primary Care Provider and Psychiatrist Call non-emergency contact if: you have any medication questions, your symptoms worsen, your pain is concerning for you and you have a fever Follow-up/Referrals: Avinash ROSALES [Primary Care Provider] - Diet: Heart Healthy Addtl Attending Provider Instructions: Follow-up with your physician at correctional facility in 1 week. Follow-up with your psychiatrist in 1 week as advised. --Can continue famotidine 10 mg twice a day for 1 week and stop --Your Psychiatrist at [facility] recommends to be started on Wellbutrin XL 150mg daily as outpatient to help with depression. Further recommendations as per his psychiatrist at the facility. Seek immediate medical attention if your symptoms reoccur or worsen Please take all medications as instructed on discharge list below. Please call if you have any questions or problems. You can reach a [facility] hospitalist on duty at [facility] 24 hours a day by calling [phone] Pending Studies at Discharge: No Stand-Alone Forms: My [facility] Skilled Items Patient informed of condition?: Yes Discharge Level of Care: Other Communicable Disease: No Discharge Prognosis: Stable Lines: None Urinary Catheter: No Medications and DC Order Prescriptions: New famotidine [Acid Rover Tender (famotidine)] 10 mg Tablet 10 mg PO BID Qty: 14 RF: 0 polyethylene glycol 3350 [Miralax] 17 gram Powder In Packet 17 g PO DAILY PRN (Reason: constipation) Qty: 0 RF: 0 Continued prazosin 2 mg Capsule 2 mg PO HS RF: 0 Discharge Orders: Discharge Order (Routine); Ordered 12/22/21 Ordered By: Indra Tenorio Admission Data Admit Date/Time: 12/19/21 15:53 Attending Provider: Indra Tenorio Admit Provider: Lisseth Paulson Primary Care Provider: Avinash ROSALES Other Providers: Lisseth Paulson ; Lauren Edwards ; Li Mercado ; Amberly Bonner ; Yosvany Rodriguez
== END 2021-12-22 18:12 | DRG 918 ==
LOC: ED 11:52 → EDINP 15:53 → SUATTDRO 15:53 → 2S 23:25